=== PATIENT | female | born 1970 | race Caucasian/White ===

== ENCOUNTER 2019-01-25 00:24 | Emergency (ER) | payer SELFPAY ==
[2019-01-25] MEDS ORDERED: Ibuprofen 800 MG TAB ONE (00:44)
[2019-01-25] MEDS ORDERED: predniSONE 20 MG TAB ONE (00:44)
== END 2019-01-25 00:50 | disposition home or self-care (01) ==
LOC: BURERS 00:24
DX: M79.89 Other specified soft tissue disorders (principal); E11.9 Type 2 diabetes mellitus without complications
CPT/HCPCS: 99283; J7512